=== PATIENT | male | born 1950 | race Caucasian/White ===

== ENCOUNTER 2017-10-19 10:01 | Outpatient (REF) | payer OTHER, SELFPAY ==
[2017-10-19 13:06] LABS: HCT 43.7 % (40.0-50.0); HGB 15.3 g/dL (13.5-17.5); Mean Corpuscular Hemoglobin 30.7 pg (27.0-33.0); Mean Corpuscular Volume 87.6 fL (80-95); Mean Platelet Volume 10.9 fL (8.0-11.0); Platelet Count 322 x1000/uL (130-400); RBC 4.99 m/cumm (4.50-6.00); RBC Distribution Width 13.5 % (11.8-14.1); White Blood Cell Count 8.94 k/cumm (4.4-10.8)
[2017-10-19 14:12] LABS: ALT 33 U/L (12-78); AST 25 U/L (15-37); Albumin 3.4 g/dL (3.4-5.0); Alkaline Phosphatase 77 U/L (46-116); Anion Gap 10.4 mmol/L (3-11); BUN 10 mg/dL (7-18); Bilirubin, Total 0.5 mg/dL (0.2-1.0); CO2 27.6 mmol/L (21.0-32.0); CREATININE 1.14 mg/dL (0.70-1.30); Calcium 8.6 mg/dL (8.5-10.1); Chloride 100 mmol/L (98-107); Cholesterol 155 mg/dL (50-200); Glucose 111 mg/dL (70-100); HDL Cholesterol 31 mg/dL (40-60); LDL CHOLESTEROL 111 mg/dL (<100); Potassium 3.9 mmol/L (3.5-5.1); Sodium 138 mmol/L (136-145); Total Protein 6.5 g/dL (6.4-8.2); Triglyceride 110 mg/dL (30-150)
[2017-10-20 09:47] LABS: PSA, Screening <0.1 ng/ml (0-4.5)
== END 2017-10-19 10:21 ==
LOC: NCHCN 10:01
PROVIDERS: Visit Provider Family Medicine
DX: Z00.00 Encounter for general adult medical examination without abnormal findings (principal); I10 Essential (primary) hypertension
CPT/HCPCS: 80053; 80061; 83721; 84153; 85027

== ENCOUNTER 2019-05-05 08:57 | Outpatient (REF) | payer OTHER, SELFPAY ==
[2019-05-05 12:32] LABS: HGB 15.9 g/dL (13.5-17.5); Mean Corp. HGB Concentration 34.6 g/dL (32.0-36.0); Mean Corpuscular Hemoglobin 30.1 pg (27.0-33.0); Mean Platelet Volume 10.8 fL (8.0-11.0); Platelet Count 330 x1000/uL (130-400); RBC 5.29 m/cumm (4.50-6.00); RBC Distribution Width 14.2 % (11.8-14.1); White Blood Cell Count 8.72 k/cumm (4.4-10.8)
[2019-05-05 12:49] LABS: ALT 26 U/L (16-63); AST 21 U/L (15-37); Albumin 3.6 g/dL (3.4-5.0); Alkaline Phosphatase 98 U/L (46-116); Anion Gap 7.2 mmol/L (3-11); BUN 9 mg/dL (7-18); Bilirubin, Total 0.7 mg/dL (0.2-1.0); CO2 31.8 mmol/L (21.0-32.0); CREATININE 1.19 mg/dL (0.70-1.30); Calculated LDL 107 mg/dL (<100); Chloride 102 mmol/L (98-107); Cholesterol 159 mg/dL (<200); Glucose 118 mg/dL (74-106); HDL Cholesterol 31 mg/dL (40-60); Potassium 3.8 mmol/L (3.5-5.1); Sodium 141 mmol/L (136-145); Triglyceride 105 mg/dL (<150)
[2019-05-08 11:06] LABS: PSA, Screening <0.1 ng/mL (0.0-4.5)
== END 2019-05-05 09:17 ==
LOC: NCHCN 08:57
PROVIDERS: Visit Provider Family Medicine
DX: Z00.00 Encounter for general adult medical examination without abnormal findings (principal); I10 Essential (primary) hypertension; Z13.220 Encounter for screening for lipoid disorders; Z85.46 Personal history of malignant neoplasm of prostate
CPT/HCPCS: 80053; 80061; 84153; 85027; 83036

== ENCOUNTER 2021-12-22 18:05 | Outpatient (REF) | payer OTHER, SELFPAY ==
[2021-12-22 21:35] LABS: Anion Gap 7.2 mmol/L (3-11); BUN 5 mg/dL (7-18); CO2 29.8 mmol/L (21.0-32.0); Calcium 8.9 mg/dL (8.5-10.1); Chloride 100 mmol/L (98-107); Estimated GFR 81.47 (mL/min/1.73m2); Glucose 103 mg/dL (74-106); Potassium 3.6 mmol/L (3.5-5.1); Sodium 137 mmol/L (136-145)
[2021-12-23 18:18] LABS: PSA, Diagnostic <0.1 ng/mL (<=4.5)
== END 2021-12-22 18:06 | disposition home or self-care (01) ==
LOC: NCHCN 18:05
PROVIDERS: Visit Provider Family Medicine
DX: Z00.00 Encounter for general adult medical examination without abnormal findings (principal); I10 Essential (primary) hypertension; R73.03 Prediabetes
CPT/HCPCS: 80048; 84153

== ENCOUNTER → 2022-11-12 09:32 | Outpatient (BNVA) | payer MEDICARE, SELFPAY | PROVIDERS: PCP Family Medicine; Referring Provider Family Medicine; Visit Provider Physical Therapy Assistant | DX: Z12.11 Encounter for screening for malignant neoplasm of colon (principal); Z86.010 Personal history of colon polyps ==

== ENCOUNTER 2022-11-19 10:30 | Day surgery (SDC) | payer MEDICARE, SELFPAY ==
--- NOTE | 2022-11-18 13:23 | W.PM.DSUDISC ---
Date of service: 11/19/22 Time of Service: 12:55 Discharge Plan Disposition Patient Disposition: Home Condition: Good Discharge Details Reason For Visit: Screening colonoscopy Attending Provider: Magdy Monreal Primary Care Provider: Theresa De La O Home Meds and New Rx's Prescriptions: Continued lisinopril 20 MG tablet 20 mg PO DAILY chlorthalidone 25 MG tablet 25 mg PO DAILY Discontinued bisacodyl [Dulcolax (bisacodyl)] 5 mg tablet,delayed release (DR/EC) 5 mg PO ONCE Qty: 4 0RF Rx Instructions: Take per colonoscopy instructions provided by ordering providers office polyethylene glycol 3350 17 gram/dose powder 17 g PO ONCE Qty: 238 0RF Rx Instructions: Take per colonoscopy instructions provided by ordering providers office Discharge Instructions Instructions: Diverticulosis (GEN), Diverticulosis Diet (GEN), Colorectal Polyps (GEN) Additional Instructions: Him, we were able to complete your colonoscopy today without any difficulty. The quality of your prep was excellent. In total, I removed 7 polyps. There were small to medium sized, and I was able to remove them all without any difficulty. We will take about a week or 2 for me to get the results of the polyp report, and I will be in touch at that point with any other recommendations. Incidentally, you also have some diverticulosis. Diverticula are weak spots that occur in the colon wall and typically accumulate with age. I have attached a little bit of information here regarding general management of diverticulosis, but my typical recommendations to patients involves making sure you have a balanced diet that is rich in dietary fiber, and avoiding symptoms of dehydration and constipation. If you have any questions in the meantime, please do not hesitate to call. 1. If tolerated, consume a soft, low fiber diet for 1-2 days. 2. Do not drive, drink alcohol, operate machinery, make critical decisions, or do activities that require coordination or balance for 24 hours. 3. Because air was put into your colon during the procedure, expelling air from your rectum (passing gas or farting) is normal. 4. You may not have a bowel movement for 1-3 days because of the colonoscopy prep. This is normal. 5. Go directly to the emergency room if you notice any of the following: Develop chills (warm to touch), or if you have a thermometer and your temperature is above 101 Difficulty breathing or difficultly swallowing Persistent vomiting Severe abdominal pain, other than gas cramps Severe chest pain Black, tarry stools Any bleeding ? exceeding one tablespoon 6. Call your physician if the site where your intravenous was started becomes red, swollen, painful, and warm to touch. 7. Your physician has reviewed your pre-procedure medications. Please continue to take those medications as previously ordered. You will be given specific information/education regarding any changes to your medications before leaving. Activity:: Activity as Tolerated Diet:: As Tolerated Discharge Orders Discharge Orders: Discharge Order (Routine); Ordered 11/18/22 Ordered By: Magdy Monreal DS: Diagnosis Discharge Diagnosis (1) Screening for colon cancer: Status: Acute Asessment and Plan: I will follow-up on polypectomy results
--- NOTE | 2022-11-18 13:24 | W.COLOREPORT ---
Date of service: 11/19/22 Time of Service: 12:57 Colonoscopy Report Date of procedure: 11/19/22 Pre-op diagnosis general: Screening colonoscopy Post-op diagnosis procedure note: other (Diverticulosis, colon and rectal polyps) Procedure: Colonoscopy with polypectomy Surgeon: Magdy Monreal Anesthesia Type: General:No Airway Estimated blood loss (mL): 10 Pathology: other (0.25 cm polyps at 95 cm from the anus x2, 0.5 cm polyp at 90 cm, 0.75 cm polyp at 90 cm, rectal polyps x3 all less than 0.25 cm) Complications: None Disposition: same day Indications: Carter is 72 years old. He says a history of adenomatous polyps. Is following up for his next colonoscopy Prep: Miralax/Dulcolax Procedure Start Time: 12:26 Procedure End Time: 12:46 Retraction Time: 16 Findings: Diverticulosis, colorectal polyps Procedure Description: After the induction of monitored anesthetic care, and with the patient in left lateral decubitus position, I began by performing an external anorectal exam.? Perineum and skin were normal, as was the anal verge.? There was no evidence of external hemorrhoids.? Next, I performed a digital rectal exam.? I did not appreciate any abnormal findings.? Next, I advanced a colonoscope into the rectal vault.? I performed retroflexion.? This appeared normal.? Using insufflation, I then advanced the colonoscope beyond the rectal folds and into the sigmoid colon before advancing towards the cecum.? The quality of the prep was excellent.? There was some sigmoid diverticulosis. The scope was noted to be in the cecum by identification of the ileocecal valve and appendiceal orifice.? Around 95 cm from the anus were 2 small sessile polyps. Each was less than 0.25 cm. Both were removed with cold forceps polypectomy. Similarly, at 90 cm were 2 more polyps. These were 0 0.5, and 0.75 cm. Both of these were sessile. Both were removed with snare polypectomy. No energy was used. There was minimal bleeding from the sites. I then began withdrawing the colonoscope using repeated irrigation as necessary for full evaluation of the colonic mucosa. ?Once the scope was withdrawn to the level of the rectum, great care was taken to examine portions of the rectal folds.? Within the rectum were 3 rectal polyps, each was less than 0.25 cm. All were removed with cold forceps polypectomy, these were all sessile in nature, and there was no bleeding from the sites. Finally, the scope was withdrawn and the patient was brought to the same-day surgery recovery unit as the anesthetic wore off. ?The findings and instructions were shared with the patient prior to discharge.
[2022-11-19 10:57] VITALS: BP 129/83; PULSE 62; RESP 17; TEMP 36.5; O2SAT 95
[2022-11-19] MEDS: Lactated Ringers 1,000 ML 80 ML IV (11:11)
--- NOTE | 2022-11-19 11:23 | W.ANESPRE ---
General Info Date of Service Date Performed: 11/19/22 Height: 5 ft 10 in Weight: 131.4 kg Body Mass Index (BMI): 41.5 Surgical Procedure: Operation Date: 11/19/22 12:35 Proposed Procedure Side Surgeon p Colonoscopy Magdy Monreal MD Meds Allergies and Home Medications Allergies Allergy/AdvReac Type Severity Reaction Status Date / Time niacin Allergy Mild Other (See Verified 11/19/22 11:03 Comment) Home Medication Medication Instructions Recorded chlorthalidone 25 mg tablet 25 mg PO DAILY 04/15/17 lisinopril 20 mg tablet 20 mg PO DAILY 04/15/17 Current Visit Medications: Current Medications Generic Name Dose Route Start Last Admin Trade Name Freq PRN Reason Stop Dose Admin Hyoscyamine Sulfate 0.125 mg 11/18/22 13:25 Hyoscyamine 0.125 Mg Sl/Oral/Chew SL 12/18/22 13:24 DIRECTED PRN Ringer's Solution 1,000 mls @ 80 mls/hr 11/19/22 06:00 11/19/22 11:11 IV 12/18/22 23:59 80 mls/hr INFUSION ANDRIA Administration IV Miscellaneous Supplies 1 each 11/19/22 06:00 Iv Access IV 12/18/22 23:59 DIRECTED ANDRIA Ondansetron HCl 4 mg 11/18/22 13:25 Ondansetron 4 Mg/2 Ml Vial IVP 12/18/22 13:24 Q4H PRN PRN Nausea / Vomiting Sodium Chloride 0 ml 11/19/22 06:00 Normal Saline Flush 10 Ml Syr IV 12/18/22 23:59 PRN PRN Sodium Chloride 0 ml 11/19/22 06:00 Normal Saline 10 Ml Vial IJ 12/18/22 23:59 DIRECTED PRN Sterile Water 0 ml 11/19/22 06:00 Water,Injection,Sterile 10 Ml Vial IJ 12/18/22 23:59 DIRECTED PRN PFSH Active Problems Active Problems: Problem Status Onset Code Prediabetes R73.03 Screening for colon cancer Z12.11 Medical History Medical History Grief reaction History of prostate cancer HTN (hypertension) Obesity Tubular adenoma of colon Surgical History Surgical History Colonoscopy - [facility] (07/19/17) Prostatectomy Tobacco Smoking/Tobacco Use Status: Never Alcohol Alcohol Intake: current Alcohol intake frequency: a few times a month Substance Use Substance use: Never Substance use type: does not use Vital Signs and Lab Results Vital Signs Most Recent Vital Signs in EMR: Most Recent Vital Signs Temp Pulse Resp BP Pulse Ox 36.5 C 62 17 129/83 95 11/19/22 10:57 11/19/22 10:57 11/19/22 10:57 11/19/22 10:57 11/19/22 10:57 Lab Results Blood Type / Crossmatch: No Data to Display Complete Blood Count: No Data to Display Complete Metabolic Panel: No Data to Display Liver Function Panel: No Data to Display Coagulation Panel: No Data to Display Cardiac Panel: No Data to Display Arterial Blood Gas: No Data to Display Venous Blood Gas: No Data to Display Pancreas Panel: No Data to Display Thyroid Panel: No Data to Display Infectious Disease: No Data to Display Blood Cultures: No Data to Display Toxicology Panel: No Data to Display Anesthesia Assessment and Plan Anesthesia History Personal History: No History of Anesthesia Complications Family History: No Family History of Anesthesia Complications Exercise Tolerance Exercise Tolerance: Metabolic Equivalents>4 Pertinent Negatives Pertinent Negatives: No Symptoms of GERD, No Major Pulmonary Symptoms or Complaints and No History of CVA/TIA Cardiac & Pulmonary Exam Cardiac Exam: Normal S1/S2 Heart Sounds Pulmonary Exam: Clear Bilateral Breath Sounds Implantable Cardiac Device Does patient have a Pacemaker or an ICD?: No Airway Exam Known Difficult Airway: No Mallampati Class: 2 Mouth Opening: Normal (> 3cm) Thyromental Distance: Greater than 3 cm Neck Range of Motion: Full ROM Neck Circumference: Normal Teeth Condition: Normal Dentition ASA Classification ASA Score: ASA 2 Emergency Case?: No NPO Status NPO Status: NPO Clears >2 hours, Solids >8 hours Anesthesia Plan Resuscitation Status: Full Code Anesthesia Technique: General Anesthesia Airway Planned: Natural Airway Monitors Used: Standard Monitors
[2022-11-19 11:25] VITALS: BMI 41.5
--- NOTE | 2022-11-19 12:32 | BOWEL_PTH ---
PATIENT: Carter Mendoza LOC: [facility] U#:[id number] AGE/SX: 72/M ROOM: RE11/19/[address]: Magdy Monreal MD : 1950 BED: DIS: 11/19/2022 SPEC #: [id number] RECD: 11/19/22 13:23 STATUS: DANIELE RE #: [id number] SANDOR: 11/19/22 12:[address]: Magdy Monreal DEPT: Surgical Specimen RECD BY: Jessa Pearson ENTERED: 11/19/22 13:25 SP TYPE: Bowel OTHR DR: Theresa De La O Tissues: 1 - BIOPSY BOWEL 2 - BIOPSY BOWEL 3 - BIOPSY BOWEL 4 - BIOPSY BOWEL Procedures: GROSS AND MICRO LEVEL 4 Comments: [id number]
[2022-11-19 12:50] VITALS: BP 130/81; PULSE 61; RESP 16; TEMP 36.7; O2SAT 95
[2022-11-19 13:14] VITALS: BP 130/84; PULSE 51; RESP 18; TEMP 36.3; O2SAT 95
--- NOTE | 2022-11-19 14:08 | W.ANESPOSTOP ---
Postoperative Evaluation Date, Time and Location Date Performed: 11/19/22 Time Performed: 12:50 Patient Location: Day Surgery Unit Vital Signs Most Recent Imported Vital Signs: Most Recent Vital Signs Temp Pulse Resp BP Pulse Ox 36.7 C 61 16 130/81 95 11/19/22 12:50 11/19/22 12:50 11/19/22 12:50 11/19/22 12:50 11/19/22 12:50 Pain Score Most Recent Pain Score: Most Recent Pain Score Pain Level 0 11/19/22 12:50 Assessment Mental Status: Awake (Alert & Oriented to Patient Baseline) Airway and Respiratory Function: Patent airway with normal (patient baseline) respiratory exam Cardiovascular Function: Hemodynamically Stable Hydration Status: Adequately Hydrated Nausea & Vomiting: No Nausea or Vomiting Pain: Pt. Denies Any Pain Peripheral Nerve Block: Patient did not receive a nerve block
== END 2022-11-19 13:55 | disposition home or self-care (01) ==
PROVIDERS: PCP Family Medicine; Visit Provider Surgery
PROC: 0DJD8ZZ Inspection of Lower Intestinal Tract, Via Natural or Artificial Opening Endoscopic (ICD-10-PCS; CPT 45378; principal; 2022-11-19 12:30)
DX: Z12.11 Encounter for screening for malignant neoplasm of colon (principal); Z86.010 Personal history of colon polyps; D12.3 Benign neoplasm of transverse colon; K62.1 Rectal polyp; K57.30 Diverticulosis of large intestine without perforation or abscess without bleeding
CPT/HCPCS: 45385; 45380; 88305; J2001

== ENCOUNTER 2023-12-23 08:51 | Outpatient (REF) | payer MEDICARE, SELFPAY ==
[2023-12-23 14:51] LABS: Abs Immature Grans 0.03 10^3/uL (0.0-0.06); Absolute Basophil Count 0.06 10^3/uL (0.0-0.2); Absolute Eosinophil Count 0.22 10^3/uL (0.0-0.7); Absolute Lymphocyte Count 2.22 10^3/uL (1.2-3.4); Absolute Monocyte Count 0.56 10^3/uL (0.1-0.8); Absolute Neutrophil Count 5.71 10^3/uL (1.2-6.7); Basophils % 0.7 %; Eosinophils % 2.5 %; HGB 16.3 g/dL (13.5-17.5); Immature Grans % 0.3 %; Lymphocytes % 25.2 %; MCH 30.9 pg (27.0-33.0); MCHC 35.4 % (32.0-36.0); MCV 87 fL (80-95); MPV 10.4 fL (8.0-11.0); Monocytes % 6.4 %; Neutrophils % 64.9 %; Platelet Count 368 10^3/uL (130-400); RBC 5.27 10^6/uL (4.36-5.78); RDW-SD 41.3 fL
[2023-12-23 15:17] LABS: Hemoglobin A1C 6.6 % (<5.7)
[2023-12-23 15:28] LABS: ALT 50 U/L (16-63); AST 59 U/L (15-37); Albumin 3.5 g/dL (3.4-5.0); Alkaline Phosphatase 77 U/L (46-116); Anion Gap 11.7 mmol/L (3-11); BUN 6 mg/dL (7-18); Bilirubin, Total 0.95 mg/dL (0.2-1.0); CO2 30.3 mmol/L (21.0-32.0); CREATININE 1.2 mg/dL (0.70-1.30); Calcium 9.2 mg/dL (8.5-10.1); Calculated LDL 91 mg/dL (<100); Chloride 99 mmol/L (98-107); Cholesterol 160 mg/dL (<200); Estimated GFR 64.65 (mL/min/1.73m2); Glucose 148 mg/dL (74-106); HDL Cholesterol 34 mg/dL (40-60); Potassium 3.2 mmol/L (3.5-5.1); Sodium 141 mmol/L (136-145); Triglyceride 175 mg/dL (<150)
[2023-12-23 22:18] LABS: PSA, Diagnostic <0.1 ng/mL (<=6.5)
== END 2023-12-23 08:52 | disposition home or self-care (01) ==
LOC: NCHCN 08:51
PROVIDERS: PCP Family Medicine; Visit Provider Family Medicine
DX: I10 Essential (primary) hypertension (principal); R73.03 Prediabetes; Z85.46 Personal history of malignant neoplasm of prostate
CPT/HCPCS: 80053; 80061; 83036; 84153; 85025